=== PATIENT | male | born 1965 | race Caucasian/White ===

== ENCOUNTER → 2020-11-23 | Outpatient (CLI) | payer BC ==
--- NOTE | 2020-11-23 10:54 | RAD ---
EXAM: Pelvis and left hip, 3 views. HISTORY: Pain. COMPARISON: None. FINDINGS: A frontal view of the pelvis and 2 views of the left hip are obtained. There is no fracture , dislocation or subluxation. The femoral heads are normal in configuration. IMPRESSION: No acute osseous finding. Electronically signed by: Betsy Jimenez MD (11/23/2020 10:51 AM) [id number]
--- NOTE | 2020-11-23 10:55 | RAD ---
EXAM: Chest, 2 views. HISTORY: Pain. COMPARISON: None. FINDINGS: 2 views of the chest are obtained. There is a moderate to large hiatal hernia. There is tasha pected bilateral infrahilar compressive atelectasis. There is no consolidation, pleural effusion or p neumothorax. The heart is normal in size. IMPRESSION: Moderate to large hiatal hernia with suspected bilateral infrahilar compressive atelectas is. Electronically signed by: Betsy Jimenez MD (11/23/2020 10:52 AM) [id number]
--- NOTE | 2020-11-23 11:00 | RAD ---
5 views of the lumbar spine 11/23/2020 INDICATION: Low back pain. Hip pain COMPARISON STUDY: None FINDINGS: There is mild anterior wedging of the T12 vertebral body. The appearance favors a chronic e tiology but is ultimately nonspecific. No other fracture or alignment abnormality is identified. No s ignificant spondylolisthesis or evidence of spondylolysis is identified. Facet arthrosis is seen at t he L5-S1 level. A component of neural foraminal narrowing or spinal stenosis may be present. No acute soft tissue changes are identified. IMPRESSION: 1. Anterior wedging of the T12 vertebral body, the appearance of which favors a chronic compression f racture, but is somewhat is nonspecific. If there is clinical concern for an acute fracture, consider MRI evaluation. 2. Degenerative changes of the lumbar spine at the lumbosacral junction including possible neural for aminal narrowing and spinal stenosis as described. Electronically signed by: Will Wright MD (11/23/2020 10:57 AM) [id number]
== END ==
LOC: RAD 10:20
PROVIDERS: ATTEND Physician Assistant Medical
DX: M47.817 Spondylosis without myelopathy or radiculopathy, lumbosacral region (principal); J98.11 Atelectasis; M25.552 Pain in left hip; K44.9 Diaphragmatic hernia without obstruction or gangrene
CPT/HCPCS: 71046; 72110; 73502

== ENCOUNTER → 2021-03-31 | Outpatient (CLI) | payer BC ==
--- NOTE | 2021-03-31 16:25 | RAD ---
AP and Lateral Views of the Chest 03/31/2021 3:56 PM Indication: Reason: COUGH, SOA, H/O COVID A FEW MONTHS AGO Comparison: Chest radiograph November 23, 2020 Findings: There is no focal consolidation or infiltrate identified. The cardiomediastinal silhouette is within normal limits. There is no evidence of pneumothorax or pleural effusion. No acute osseous a bnormalities are identified. Impression: No evidence of acute cardiopulmonary process. Electronically signed by: Will Wright MD (03/31/2021 4:23 PM) [id number]
== END ==
LOC: RAD 15:50
PROVIDERS: ATTEND Physician Assistant Medical
DX: R06.02 Shortness of breath (principal)
CPT/HCPCS: 71046